=== PATIENT | male | born 1950 | race Two or more races ===

== ENCOUNTER → 2019-06-24 | Emergency (ER) | payer OTHER ==
[~2019-06-24] MED LIST: CATAPRES0.1 MG PO; DESPEC-DM TABL1 EACH PO; GLIMEPIRIDE1 MG; INTESTINEX1 CAP PO; LEVAQUIN750 MG PO; METFORMIN HCL500 MG PO; TAMS0.4C PO; VASOTEC20 M1 PO; XANAX XR2 MG PO; ZOLOFT100 MG PO
== END | disposition left against medical advice (07) ==
LOC: ER 19:07
DX: Z53.20 Procedure and treatment not carried out because of patient's decision for unspecified reasons (principal)

== ENCOUNTER 2019-07-07 20:29 | Emergency (ER) | payer OTHER ==
[~2019-07-07] VITALS: Ht 172.7 cm; Wt 90.7 kg
== END 2019-07-07 21:30 | disposition home or self-care (01) ==
LOC: ER 20:29
DX: R42 Dizziness and giddiness (principal); F41.8 Other specified anxiety disorders

== ENCOUNTER 2019-07-18 19:47 | Emergency (ER) | payer OTHER ==
[~2019-07-18] VITALS: Ht 172.7 cm; Wt 90.7 kg
== END 2019-07-18 21:35 | disposition home or self-care (01) ==
LOC: ER 19:47
DX: R07.89 Other chest pain (principal)

== ENCOUNTER 2019-11-26 15:23 | Emergency (ER) | payer OTHER ==
[~2019-11-26] VITALS: Ht 172.7 cm; Wt 85.3 kg
== END 2019-11-26 17:27 | disposition home or self-care (01) ==
LOC: ER 15:23
DX: H10.89 Other conjunctivitis (principal); E11.65 Type 2 diabetes mellitus with hyperglycemia; Z79.84 Long term (current) use of oral hypoglycemic drugs

== ENCOUNTER → 2020-02-26 | Emergency (ER) | payer OTHER ==
[~2020-02-26] VITALS: Ht 172.7 cm; Wt 88.5 kg
== END | disposition home or self-care (01) ==
LOC: ER 00:03
DX: F06.4 Anxiety disorder due to known physiological condition (principal)

== ENCOUNTER 2021-11-13 18:52 | Emergency (ER) | payer OTHER ==
[~2021-11-13] VITALS: Ht 172.7 cm; Wt 86.2 kg
== END 2021-11-13 22:19 | disposition home or self-care (01) ==
LOC: ER 18:52
DX: E11.65 Type 2 diabetes mellitus with hyperglycemia (principal); R42 Dizziness and giddiness; Z79.84 Long term (current) use of oral hypoglycemic drugs; I10 Essential (primary) hypertension; Z88.0 Allergy status to penicillin; Z88.2 Allergy status to sulfonamides; H53.8 Other visual disturbances